=== PATIENT | female | born 1965 | race African-American/Black ===

== ENCOUNTER 2016-03-12 12:46 | Emergency (ER) | payer OTHER ==
[2016-03-12] MEDS ORDERED: ONDANSETRON 4 MG ORAL DISINTEGRATING TAB (S0181) As Ordered ONE (15:07)
--- NOTE | 2016-03-12 16:02 | EDDOCDS ---
Nurse's Notes [facility] Name: Macie Chavez Age: 50 yrs Sex: Female : 1965 Arrival Date: 03/12/2016 Time: 12:46 Bed PD Private MD: Madelyn Thomas L. Diagnosis: Nausea and vomiting;Diarrhea, unspecified Presentation: 03/12 12:52 Presenting complaint: Patient states: diarrhea for a couple of days, nausea, dizziness srm for a few days. 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 Presenting complaint: Patient states: churning abdominal pain. Adult Sepsis Screening: The patient does not have new or worsening altered mentation. Patient's respiratory rate is less than 22. Systolic blood pressure is greater than 100. Patient has a qSOFA score of 0- Negative Sepsis Screen. Suicide/Homicide risk assessment- the patient denies having any suicidal and/or homicidal ideations and does not present with any other emotional, behavioral or mental health complaints. 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 Transition of care: patient was not received from another setting of care. 12:52 Acuity: RAVEN Level 3 srm 12:52 Method Of Arrival: Walkin/Carried/Asstd srm Triage Assessment: 12:56 General: Appears in no apparent distress, Behavior is appropriate for age, cooperative. srm Pain: Pain currently is 3 out of 10 on a pain scale. HIV screening NA for this visit Offered previously. 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 Lisinopril Unknown Oral twice a day 2. metoprolol tartrate 50 mg Oral tab 1 tab 2 times per day usually takes it once a day - PMHx: Asthma; Hypertension; - PSHx: Hysterectomy (2007); - Social history: Smoking status: Patient states was never smoker of tobacco. No barriers to communication noted, The patient speaks fluent Indonesian, Speaks appropriately for age. - Family history: Not pertinent. - : The pt / caregiver states he / she is not on anticoagulants. Home medication list is obtained from the patient. - Exposure Risk Screening:: None identified. Screenin:57 Screening information is obtained from the patient. Fall risk: No risks identified. [facility] Assistance ADL's: requires no assistance with activities of daily living. Abuse/DV Screen: The patient / caregiver reports he/she is: not in a situation that causes fear, pain or injury. Nutritional screening: No deficits noted. Advance Directives: There is no active DNR order. home support is adequate. Assessment: 14:58 General: Appears in no apparent distress, comfortable. EENT: Throat is reddened with hs1 gag reflex present. Respiratory: No deficits noted. Airway is patent Respiratory effort is even, unlabored, Respiratory pattern is regular, symmetrical. GI: Abdomen is flat, Bowel sounds present X 4 quads. Abd is soft and non tender X 4 quads. 15:57 General: Appears in no apparent distress, comfortable, Behavior is appropriate for age, cjh cooperative. General: reviewed discharge instructions, encouraged and answered questions, denies further needs and declines offer of additional assistance. Pain: Denies pain. Vital Signs: 12:48 BP 144 / 95; Pulse 89; Resp 18 S; Temp 99.2(O); Pulse Ox 100% on R/A; Weight 95.71 kg gr2 (M); Height 5 ft. 5 in. (165.10 cm) (M); Pain 5/10; 15:47 BP 130 / 80 LA Sitting (auto/reg); Pulse 85; Resp 18; Temp 97.8(O); Pulse Ox 100% ; jrd Pain 0/10; 12:48 Body Mass Index 35.11 (95.71 kg, 165.10 cm) gr2 Vitals: 12:48 Log In Time: March 12, 2016 at 12:48. gr2 14:58 Strep Screen is obtained and tested: Positive. hs1 ED Course: 12:47 Patient visited by Jillian Ace. gr2 12:47 Patient moved to Waiting gr2 12:48 Madelyn Thomas is Private Physician. gr2 12:52 Patient visited by Jillian Ace. gr2 12:52 Patient moved to Pre RCE gr2 12:55 Triage Initiated srm 14:26 Patient moved to Triage 1 hs1 14:56 [facility]. ar2 14:56 Smith Bro MD is Attending Physician. ar2 14:56 Patient visited by Karl Chiu PA-C. ar2 15:12 Patient moved to PD2 / 27 srm 15:34 Madelyn Thomas is Referral Physician. ar2 15:36 [facility] Payment Agreement was scanned into [employer] and attached to record. lg 15:48 Patient visited by Ronan Solano PCA. jrd 15:57 The patient / caregiver is instructed regarding the plan of care and ED course. [facility] 15:57 No IV's were initiated during this patient's visit. No procedures done that require [facility] assistance. Administered Medications: 15:12 Drug: Ondansetron ODT 4 mg [ondansetron 4 mg disintegrating tablet (1 tabs)] Route: PO; hs1 Order Results: Lab Order: -Influenza A&B Rapid Antigen - Nose; SPEC'M 03/12/16 14:44 Test: INFLUENZA A RAPID SCR by ICA; Value: INFLUENZA A RESULTS NEGATIVE; Status: F Test: INFLUENZA A RAPID SCR by ICA; Value: Comments:; Status: F Test: INFLUENZA B RAPID SCR by ICA; Value: INFLUENZA B RESULTS NEGATIVE; Status: F Test Note: ; The Influenza test is a direct rapid immunoassay for the qualitative detection of Influenza viral antigen. Cell culture (Viral Culture) testing should be considered to confirm NEGATIVE results and to assist in detecting other viruses that can provide similar clinical symptoms. Please contact the lab within 24 hours ([phone]) if confirmatory testing is desired. Outcome: 15:35 Discharge ordered by Provider. ar2 15:57 Discharge Assessment: Patient awake, alert and oriented x 3. No cognitive and/or [facility] functional deficits noted. Patient verbalized understanding of disposition instructions. patient administered narcotics - no. The following High Risk Discharge criteria are identified: None. Discharged to home ambulatory. Condition: good Condition: stable Condition: improved. Discharge instructions given to patient, Instructed on discharge instructions, follow up and referral plans. medication usage, Demonstrated understanding of instructions, medications, Pt was receptive of discharge instructions/ teaching. Prescriptions given X 2. No special radiology studies were completed. Property :Personal belongings accompany Pt. 16:01 Patient left the ED. [facility] Signatures: Carley Chapman, RN RN [facility] Anna Lemus, Reg Reg lg Karl Chiu, PA-C PA-C ar2 Kathia Paniagua RN RN hs1 Astrid Toscano RN RN [facility] Jillian Ace gr2 Ronan Solano, NUHA APPLICATIONS TESTER jrd Corrections: (The following items were deleted from the chart) 12:56 12:56 Pain: Denies pain. srm srm MTDD
--- NOTE | 2016-03-12 16:02 | EDDOCDS ---
Physician Documentation [facility] Name: Macie Chavez Age: 50 yrs Sex: Female : 1965 Arrival Date: 03/12/2016 Time: 12:46 Bed PD Private MD: Madelyn Thomas L. Disposition: 03/12/16 15:35 Discharged to Home/Self Care. Impression: Nausea and vomiting, Diarrhea, unspecified. - Condition is Stable. - Discharge Instructions: Diarrhea, Clear Liquid Diet, Nausea and Vomiting. - Prescriptions for Keflex 500 mg Oral Capsule - take 1 capsule by ORAL route every 12 hours for 10 days; 20 capsule. ZOFRAN ODT 4 mg - dissolve 1 tablet by ORAL route 4 times per day As needed do not chew, do not swallow whole; 10 tablet. - Medication Reconciliation, Local Pharmacy Hours, Family Work Release form. - Follow up: Madelyn Thomas; When: 4 - 5 days; Reason: Recheck today's complaints, Continuance of care. Follow up: Emergency Department; When: As needed; Reason: Fever > 102F, Worsening of conditions. - Problem is new. - Symptoms have improved. Historical: - Allergies: no known allergies; - Home Meds: 1. Lisinopril Unknown Oral twice a day 2. metoprolol tartrate 50 mg Oral tab 1 tab 2 times per day usually takes it once a day - PMHx: Asthma; Hypertension; - PSHx: Hysterectomy (2007); - Social history: Smoking status: Patient states was never smoker of tobacco. No barriers to communication noted, The patient speaks fluent Mongolian, Speaks appropriately for age. - Family history: Not pertinent. - : The pt / caregiver states he / she is not on anticoagulants. Home medication list is obtained from the patient. - Exposure Risk Screening:: None identified. 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 5 in. (165.10 cm) (M); Pain 5/10; 15:47 BP 130 / 80 LA Sitting (auto/reg); Pulse 85; Resp 18; Temp 97.8(O); Pulse Ox 100% ; jrd Pain 0/10; 12:48 Body Mass Index 35.11 (95.71 kg, 165.10 cm) gr2 MDM: 14:17 Strep Screen, Nursing ordered. ef1 14:17 Obtain sample by nasopharyngeal swab ordered. ef1 14:18 -Influenza A&B Rapid Antigen - Nose Ordered. EDMS 15:06 Ondansetron ODT Oral Disintegrating Tablet 4 mg PO once ordered. ar2 15:06 Fluid Challenge ordered. ar2 15:12 -Influenza A&B Rapid Antigen - Nose Reviewed. ar2 15:30 Financial registration complete. lg 15:36 [facility] Payment Agreement was scanned into [employer] and attached to record. lg 15:41 GATS (NEGATIVE STREP SCREEN) Ordered. EDMS Administered Medications: 15:12 Drug: Ondansetron ODT 4 mg [ondansetron 4 mg disintegrating tablet (1 tabs)] Route: PO; hs1 Signatures: Dispatcher [employer] EDMS Carley Chapman, RN RN srm Anna Lemus, Reg Reg lg Karl Chiu PA-C PA-C ar2 Payton Aguirre PA-C PALorna ef1 Astrid Toscano RN RN cjh Sherrill, Hannah RN hs1 The chart was reviewed and I authenticate all verbal orders and agree with the evaluation and treatment provided.Attachments: 15:36 [facility] Payment Agreement lg MTDD
--- NOTE | 2016-03-14 17:02 | EDDOCDS ---
Nurse's Notes [facility] Name: Macie Chavez Age: 50 yrs Sex: Female : 1965 Arrival Date: 03/12/2016 Time: 12:46 Bed PD Private MD: Madelyn Thomas L. Diagnosis: Nausea and vomiting;Diarrhea, unspecified Presentation: 03/12 12:52 Presenting complaint: Patient states: diarrhea for a couple of days, nausea, dizziness srm for a few days. 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 Presenting complaint: Patient states: churning abdominal pain. Adult Sepsis Screening: The patient does not have new or worsening altered mentation. Patient's respiratory rate is less than 22. Systolic blood pressure is greater than 100. Patient has a qSOFA score of 0- Negative Sepsis Screen. Suicide/Homicide risk assessment- the patient denies having any suicidal and/or homicidal ideations and does not present with any other emotional, behavioral or mental health complaints. Status: Patient is not a community service aide or dependent. Transition of care: patient was not received from another setting of care. 12:52 Acuity: RAVEN Level 3 srm 12:52 Method Of Arrival: Walkin/Carried/Asstd srm Triage Assessment: 12:56 General: Appears in no apparent distress, Behavior is appropriate for age, cooperative. srm Pain: Pain currently is 3 out of 10 on a pain scale. HIV screening NA for this visit Offered previously. 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 Lisinopril Unknown Oral twice a day 2. metoprolol tartrate 50 mg Oral tab 1 tab 2 times per day usually takes it once a day - PMHx: Asthma; Hypertension; - PSHx: Hysterectomy (2007); - Social history: Smoking status: Patient states was never smoker of tobacco. No barriers to communication noted, The patient speaks fluent South Korean, Speaks appropriately for age. - Family history: Not pertinent. - : The pt / caregiver states he / she is not on anticoagulants. Home medication list is obtained from the patient. - Exposure Risk Screening:: None identified. Screenin:57 Screening information is obtained from the patient. Fall risk: No risks identified. [facility] Assistance ADL's: requires no assistance with activities of daily living. Abuse/DV Screen: The patient / caregiver reports he/she is: not in a situation that causes fear, pain or injury. Nutritional screening: No deficits noted. Advance Directives: There is no active DNR order. home support is adequate. Assessment: 14:58 General: Appears in no apparent distress, comfortable. EENT: Throat is reddened with hs1 gag reflex present. Respiratory: No deficits noted. Airway is patent Respiratory effort is even, unlabored, Respiratory pattern is regular, symmetrical. GI: Abdomen is flat, Bowel sounds present X 4 quads. Abd is soft and non tender X 4 quads. 15:57 General: Appears in no apparent distress, comfortable, Behavior is appropriate for age, cjh cooperative. General: reviewed discharge instructions, encouraged and answered questions, denies further needs and declines offer of additional assistance. Pain: Denies pain. Vital Signs: 12:48 BP 144 / 95; Pulse 89; Resp 18 S; Temp 99.2(O); Pulse Ox 100% on R/A; Weight 95.71 kg gr2 (M); Height 5 ft. 5 in. (165.10 cm) (M); Pain 5/10; 15:47 BP 130 / 80 LA Sitting (auto/reg); Pulse 85; Resp 18; Temp 97.8(O); Pulse Ox 100% ; jrd Pain 0/10; 12:48 Body Mass Index 35.11 (95.71 kg, 165.10 cm) gr2 Vitals: 12:48 Log In Time: March 12, 2016 at 12:48. gr2 14:58 Strep Screen is obtained and tested: Positive. hs1 ED Course: 12:47 Patient visited by Jillian Ace. gr2 12:47 Patient moved to Waiting gr2 12:48 Madelyn Thomas is Private Physician. gr2 12:52 Patient visited by Jillian Ace. gr2 12:52 Patient moved to Pre RCE gr2 12:55 Triage Initiated srm 14:26 Patient moved to Triage 1 hs1 14:56 [facility] ar2 14:56 Smith Bro MD is Attending Physician. ar2 14:56 Patient visited by Karl Chiu PA-C. ar2 15:12 Patient moved to PD2 / 27 srm 15:34 Madelyn Thomas is Referral Physician. ar2 15:36 [facility] Payment Agreement was scanned into [employer] and attached to record. lg 15:48 Patient visited by Ronan Solano PCA. jrd 15:57 The patient / caregiver is instructed regarding the plan of care and ED course. [facility] 15:57 No IV's were initiated during this patient's visit. No procedures done that require [facility] assistance. 03/13 11:40 T-Sheet-- Draft Copy was scanned into [employer] and attached to record. gb Administered Medications: 03/12 15:12 Drug: Ondansetron ODT 4 mg [ondansetron 4 mg disintegrating tablet (1 tabs)] Route: PO; hs1 Order Results: Lab Order: -Influenza A&B Rapid Antigen - Nose; SPEC'M 03/12/16 14:44 Test: INFLUENZA A RAPID SCR by ICA; Value: INFLUENZA A RESULTS NEGATIVE; Status: F Test: INFLUENZA A RAPID SCR by ICA; Value: Comments:; Status: F Test: INFLUENZA B RAPID SCR by ICA; Value: INFLUENZA B RESULTS NEGATIVE; Status: F Test Note: ; The Influenza test is a direct rapid immunoassay for the qualitative detection of Influenza viral antigen. Cell culture (Viral Culture) testing should be considered to confirm NEGATIVE results and to assist in detecting other viruses that can provide similar clinical symptoms. Please contact the lab within 24 hours ([phone]) if confirmatory testing is desired. Lab Order: GATS (NEGATIVE STREP SCREEN); SPEC'M 03/12/16 15:50 Test: GATS CULTURE (NEG STREP SCR); Value: GATS RESULT NEGATIVE FOR STREP PYOGENES (GROUP A); Status: F Test: GATS CULTURE (NEG STREP SCR); Value: <EXTERNAL COMMENT eCWMed> FULL REPORT IN LAB NOTES (eCW and Medent).; Status: F Outcome: 15:35 Discharge ordered by Provider. ar2 15:57 Discharge Assessment: Patient awake, alert and oriented x 3. No cognitive and/or [facility] functional deficits noted. Patient verbalized understanding of disposition instructions. patient administered narcotics - no. The following High Risk Discharge criteria are identified: None. Discharged to home ambulatory. Condition: good Condition: stable Condition: improved. Discharge instructions given to patient, Instructed on discharge instructions, follow up and referral plans. medication usage, Demonstrated understanding of instructions, medications, Pt was receptive of discharge instructions/ teaching. Prescriptions given X 2. No special radiology studies were completed. Property :Personal belongings accompany Pt. 16:01 Patient left the ED. [facility] Signatures: Carley Chapman, RN RN [facility] FatumaLalita, Reg Reg gb Allan Anna, Reg Reg lg Karl Chiu PA-C PA-C ar2 Kathia Paniagua RN RN hs1 Astrid Toscano RN RN [facility] Jillian Ace gr2 Ronan Solano, NUHA BALLISTICS EXPERT FORENSIC jrd Corrections: (The following items were deleted from the chart) 12:56 12:56 Pain: Denies pain. [facility] Chart Complete MTDD
--- NOTE | 2016-03-14 17:02 | EDDOCDS ---
Physician Documentation [facility] Name: Macie Chavez Age: 50 yrs Sex: Female : 1965 Arrival Date: 03/12/2016 Time: 12:46 Bed PD Private MD: Madelyn Thomas L. Disposition: 03/12/16 15:35 Discharged to Home/Self Care. Impression: Nausea and vomiting, Diarrhea, unspecified. - Condition is Stable. - Discharge Instructions: Diarrhea, Clear Liquid Diet, Nausea and Vomiting. - Prescriptions for Keflex 500 mg Oral Capsule - take 1 capsule by ORAL route every 12 hours for 10 days; 20 capsule. ZOFRAN ODT 4 mg - dissolve 1 tablet by ORAL route 4 times per day As needed do not chew, do not swallow whole; 10 tablet. - Medication Reconciliation, Local Pharmacy Hours, Family Work Release form. - Follow up: Madelyn Thomas; When: 4 - 5 days; Reason: Recheck today's complaints, Continuance of care. Follow up: Emergency Department; When: As needed; Reason: Fever > 102F, Worsening of conditions. - Problem is new. - Symptoms have improved. Historical: - Allergies: no known allergies; - Home Meds: 1. Lisinopril Unknown Oral twice a day 2. metoprolol tartrate 50 mg Oral tab 1 tab 2 times per day usually takes it once a day - PMHx: Asthma; Hypertension; - PSHx: Hysterectomy (2007); - Social history: Smoking status: Patient states was never smoker of tobacco. No barriers to communication noted, The patient speaks fluent Kyrgyz, Speaks appropriately for age. - Family history: Not pertinent. - : The pt / caregiver states he / she is not on anticoagulants. Home medication list is obtained from the patient. - Exposure Risk Screening:: None identified. 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 5 in. (165.10 cm) (M); Pain 5/10; 15:47 BP 130 / 80 LA Sitting (auto/reg); Pulse 85; Resp 18; Temp 97.8(O); Pulse Ox 100% ; jrd Pain 0/10; 12:48 Body Mass Index 35.11 (95.71 kg, 165.10 cm) gr2 MDM: 14:17 Strep Screen, Nursing ordered. ef1 14:17 Obtain sample by nasopharyngeal swab ordered. ef1 14:18 -Influenza A&B Rapid Antigen - Nose Ordered. EDMS 15:06 Ondansetron ODT Oral Disintegrating Tablet 4 mg PO once ordered. ar2 15:06 Fluid Challenge ordered. ar2 15:12 -Influenza A&B Rapid Antigen - Nose Reviewed. ar2 15:30 Financial registration complete. lg 15:36 [facility] Payment Agreement was scanned into [employer] and attached to record. lg 15:41 GATS (NEGATIVE STREP SCREEN) Ordered. EDMS 03/13 11:40 T-Sheet-- Draft Copy was scanned into [employer] and attached to record. gb Administered Medications: 03/12 15:12 Drug: Ondansetron ODT 4 mg [ondansetron 4 mg disintegrating tablet (1 tabs)] Route: PO; hs1 Signatures: Dispatcher [employer] EDMS Carley Chapman, RN RN [facility] Lalita Burris, Reg Reg gb Anna Lemus, Reg Reg lg Karl Chiu PA-C PA-C ar2 Payton Aguirre PA-C PALorna ef1 Astrid Toscano RN RN [facility] Kathia Paniagua RN hs1 The chart was reviewed and I authenticate all verbal orders and agree with the evaluation and treatment provided.Attachments: 15:36 [facility] Payment Agreement lg 03/13 11:40 T-Sheet-- Draft Copy gb Chart Complete MTDD
--- NOTE | 2016-03-14 17:02 | EDDOCDS ---
Physician Documentation [facility] Name: Macie Chavez Age: 50 yrs Sex: Female : 1965 Arrival Date: 03/12/2016 Time: 12:46 [address] Private MD: Madelyn Thomas L. Disposition: 03/12/16 15:35 Discharged to Home/Self Care. Impression: Nausea and vomiting, Diarrhea, unspecified. - Condition is Stable. - Discharge Instructions: Diarrhea, Clear Liquid Diet, Nausea and Vomiting. - Prescriptions for Keflex 500 mg Oral Capsule - take 1 capsule by ORAL route every 12 hours for 10 days; 20 capsule. ZOFRAN ODT 4 mg - dissolve 1 tablet by ORAL route 4 times per day As needed do not chew, do not swallow whole; 10 tablet. - Medication Reconciliation, Local Pharmacy Hours, Family Work Release form. - Follow up: Madelyn Thomas; When: 4 - 5 days; Reason: Recheck today's complaints, Continuance of care. Follow up: Emergency Department; When: As needed; Reason: Fever > 102F, Worsening of conditions. - Problem is new. - Symptoms have improved. Historical: - Allergies: no known allergies; - Home Meds: 1. Lisinopril Unknown Oral twice a day 2. metoprolol tartrate 50 mg Oral tab 1 tab 2 times per day usually takes it once a day - PMHx: Asthma; Hypertension; - PSHx: Hysterectomy (2007); - Social history: Smoking status: Patient states was never smoker of tobacco. No barriers to communication noted, The patient speaks fluent Indonesian, Speaks appropriately for age. - Family history: Not pertinent. - : The pt / caregiver states he / she is not on anticoagulants. Home medication list is obtained from the patient. - Exposure Risk Screening:: None identified. 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 5 in. (165.10 cm) (M); Pain 5/10; 15:47 BP 130 / 80 LA Sitting (auto/reg); Pulse 85; Resp 18; Temp 97.8(O); Pulse Ox 100% ; jrd Pain 0/10; 12:48 Body Mass Index 35.11 (95.71 kg, 165.10 cm) gr2 MDM: 14:17 Strep Screen, Nursing ordered. ef1 14:17 Obtain sample by nasopharyngeal swab ordered. ef1 14:18 -Influenza A&B Rapid Antigen - Nose Ordered. EDMS 15:06 Ondansetron ODT Oral Disintegrating Tablet 4 mg PO once ordered. ar2 15:06 Fluid Challenge ordered. ar2 15:12 -Influenza A&B Rapid Antigen - Nose Reviewed. ar2 15:30 Financial registration complete. lg 15:36 [facility] Payment Agreement was scanned into [employer] and attached to record. lg 15:41 GATS (NEGATIVE STREP SCREEN) Ordered. EDMS 03/13 11:40 T-Sheet-- Draft Copy was scanned into [employer] and attached to record. gb Administered Medications: 03/12 15:12 Drug: Ondansetron ODT 4 mg [ondansetron 4 mg disintegrating tablet (1 tabs)] Route: PO; hs1 Signatures: Dispatcher [employer] EDMS Carley Chapman, RN RN [facility] Lalita Burris, Reg Reg gb Anna Lemus, Reg Reg lg Karl Chiu PA-C PA-C ar2 Payton Aguirre PA-C PALorna ef1 Astrid Toscano RN RN [facility] Kathia Paniagua RN hs1 The chart was reviewed and I authenticate all verbal orders and agree with the evaluation and treatment provided.Attachments: 15:36 [facility] Payment Agreement lg 03/13 11:40 T-Sheet-- Draft Copy gb Chart Complete MTDD
== END 2016-03-12 16:01 | disposition home or self-care (01) ==
LOC: M ED 12:46
DX: R11.2 Nausea with vomiting, unspecified (principal); R19.7 Diarrhea, unspecified; J45.909 Unspecified asthma, uncomplicated; I10 Essential (primary) hypertension; Z79.899 Other long term (current) drug therapy

== ENCOUNTER → 2016-04-30 | Outpatient (REF) | payer OTHER ==
[2016-04-30 13:46] LABS: MEAN CORPUSCULAR HEMOGLOBIN 27.2 pg (27.0-33.0); MEAN CORPUSCULAR HGB CONC 31.4 g/dl (32.0-36.5); MEAN CORPUSCULAR VOLUME 86.9 fl (80.0-96.0); RED CELL DISTRIBUTION WIDTH 13.1 % (11.5-14.5); WHITE BLOOD COUNT 6.5 K/mm3 (4.0-10.0)
[2016-04-30 14:26] LABS: ALBUMIN 3.4 GM/DL (3.2-5.2); ALKALINE PHOSPHATASE 59 U/L (45-117); ALT/SGPT 19 U/L (12-78); ANION GAP 8 MEQ/L (8-16); AST/SGOT 17 U/L (15-37); BILIRUBIN,TOTAL 0.3 MG/DL (0.2-1.0); BLOOD UREA NITROGEN 11 MG/DL (7-18); CALCIUM LEVEL 8.4 MG/DL (8.5-10.1); CARBON DIOXIDE LEVEL 30 MEQ/L (21-32); CHLORIDE LEVEL 104 MEQ/L (98-107); CHOLESTEROL LEVEL 174 MG/DL (<200); GLOMERULAR FILTRATION RATE > 60.0 (>51); GLUCOSE, FASTING 89 MG/DL (70-105); POTASSIUM SERUM 3.8 MEQ/L (3.5-5.1); SODIUM LEVEL 142 MEQ/L (136-145); TOTAL PROTEIN 6.8 GM/DL (6.4-8.2); TRIGLYCERIDES LEVEL 80 MG/DL (<150)
== END ==
LOC: M LABDRAW1 12:45
PROVIDERS: ATTEND Nurse Practitioner Family
DX: I10 Essential (primary) hypertension (principal); E55.9 Vitamin D deficiency, unspecified; E78.00 Pure hypercholesterolemia, unspecified

== ENCOUNTER → 2016-08-22 | Outpatient (REF) | payer OTHER ==
[2016-08-22 13:53] LABS: MEAN CORPUSCULAR HEMOGLOBIN 28.1 pg (27.0-33.0); MEAN CORPUSCULAR HGB CONC 32.3 g/dl (32.0-36.5); MEAN CORPUSCULAR VOLUME 86.9 fl (80.0-96.0); RED CELL DISTRIBUTION WIDTH 13.6 % (11.5-14.5)
[2016-08-22 13:57] LABS: CONTROL LINE MONO INT CTR LINE PRESENT
[2016-08-22 14:39] LABS: ALBUMIN 3.3 GM/DL (3.2-5.2); ALBUMIN/GLOBULIN RATIO 0.94 (1.00-1.93); ALKALINE PHOSPHATASE 62 U/L (45-117); ALT/SGPT 14 U/L (12-78); ANION GAP 5 MEQ/L (8-16); AST/SGOT 11 U/L (15-37); BILIRUBIN,TOTAL 0.3 MG/DL (0.2-1.0); BLOOD UREA NITROGEN 8 MG/DL (7-18); CALCIUM LEVEL 9.1 MG/DL (8.5-10.1); CARBON DIOXIDE LEVEL 28 MEQ/L (21-32); CHLORIDE LEVEL 104 MEQ/L (98-107); CREATININE FOR GFR 0.64 MG/DL (0.55-1.02); GLOMERULAR FILTRATION RATE > 60.0 (>51); GLUCOSE, FASTING 97 MG/DL (70-105); IMMUNOGLOBULIN G 1310 MG/DL (681-1648); IMMUNOGLOBULIN M 58.3 MG/DL (40-230); POTASSIUM SERUM 3.9 MEQ/L (3.5-5.1); SODIUM LEVEL 137 MEQ/L (136-145); TOTAL PROTEIN 6.8 GM/DL (6.4-8.2)
== END ==
LOC: M LABDRAW1 13:19
PROVIDERS: ATTEND Nurse Practitioner Family
DX: R53.83 Other fatigue (principal); R50.9 Fever, unspecified

== ENCOUNTER → 2017-06-06 | Outpatient (REF) | payer OTHER ==
[2017-06-06 15:46] LABS: HEMATOCRIT 37.2 % (36.0-47.0); HEMOGLOBIN 11.9 g/dl (12.0-15.5); MEAN CORPUSCULAR HEMOGLOBIN 27.3 pg (27.0-33.0); MEAN CORPUSCULAR VOLUME 85.3 fl (80.0-96.0); PLATELET COUNT, AUTOMATED 325 10^3/uL (150-450); RED BLOOD COUNT 4.36 10^6/uL (4.00-5.40); WHITE BLOOD COUNT 5.5 10^3/uL (4.0-10.0)
[2017-06-06 15:54] LABS: ALBUMIN 3.3 GM/DL (3.2-5.2); ALBUMIN/GLOBULIN RATIO 0.97 (1.00-1.93); ALKALINE PHOSPHATASE 63 U/L (45-117); ALT/SGPT 16 U/L (12-78); ANION GAP 6 MEQ/L (8-16); AST/SGOT 21 U/L (7-37); BILIRUBIN,TOTAL 0.3 MG/DL (0.2-1.0); BLOOD UREA NITROGEN 12 MG/DL (7-18); CALCIUM LEVEL 8.4 MG/DL (8.5-10.1); CARBON DIOXIDE LEVEL 30 MEQ/L (21-32); CHLORIDE LEVEL 108 MEQ/L (98-107); CHOLESTEROL LEVEL 142 MG/DL (<200); CHOLESTEROL RISK RATIO 3.155 (<5); CPK CREATINE PHOSPHOKINASE 110 U/L (26-192); CREATININE FOR GFR 0.76 MG/DL (0.55-1.30); FREE T4 0.85 NG/DL (0.76-1.46); GLOMERULAR FILTRATION RATE > 60.0 (>51); GLUCOSE, FASTING 97 MG/DL (70-100); HDL CHOLESTEROL 45 MG/DL (>40); LDL CHOLESTEROL 72.6 MG/DL (<100); NON-HDL-C 97 MG/DL; POTASSIUM SERUM 3.9 MEQ/L (3.5-5.1); SODIUM LEVEL 144 MEQ/L (136-145); TOTAL PROTEIN 6.7 GM/DL (6.4-8.2); TRIGLYCERIDES LEVEL 122 MG/DL (<150)
== END ==
LOC: M LABDRAW1 15:18
DX: I10 Essential (primary) hypertension (principal); E78.00 Pure hypercholesterolemia, unspecified; R53.83 Other fatigue
CPT/HCPCS: 82550